=== PATIENT | female | born 1945 | race Caucasian/White ===

== ENCOUNTER → 2018-05-20 12:37 | Outpatient (CLI) | payer OTHER, SELFPAY ==
--- NOTE | 2018-05-20 | DI.MRI.S_ITS ---
PROCEDURE: MR KNEE LT WO CON INDICATIONS: LEFT KNEE OSTEOARTHRITIS TECHNIQUE: Noncontrast sagittal PD fast spin echo and T2 fast spin echo with fat saturation, sagittal 3-D FLASH with fat saturation; coronal T1 spin echo and PD fast spin echo with fat saturation, and axial PD fast spin echo with fat saturation through the knee. COMPARISON: None. FINDINGS: Image quality: Excellent. Menisci: There is peripheral displacement of medial meniscus the medial collateral ligament. Complex tear involving body and posterior horn of medial meniscus is seen extending to both superior and inferior articulating surfaces. There is also complex tear involving anterior horn and body of lateral meniscus extending to both superior and inferior articulating surfaces.. The meniscal root ligaments appear intact. Cruciate ligaments: Degenerative changes throughout anterior cruciate ligament is seen. No full-thickness ACL rupture. Posterior cruciate ligament is intact. Medial structures: The medial collateral ligament appears intact. The posterior oblique ligament, semimembranosus tendon insertions, oblique popliteal ligament, and meniscocapsular junction appear intact. Visualized portions of the pes anserinus tendons appear normal. No abnormal bursal fluid. Lateral structures: The lateral collateral ligament, long and short heads of the biceps femoris tendon appear intact. The popliteus tendon appears normal; the popliteofibular ligament appears intact. The posterosuperior and anteroinferior popliteomeniscal fascicles appear intact. The arcuate and fabellofibular ligaments appear intact, on either side of the lateral inferior geniculate artery. Iliotibial band appears normal. Anterior structures: The quadriceps and patellar tendons appear intact. Patellar alignment is normal. No femoral trochlear dysplasia or ventral trochlear prominence. No edema in the infrapatellar fat pad. Bones and cartilage: Moderate tricompartment osteoarthritis is seen most prominent in medial femoral-tibial compartment with near-complete loss of articulating cartilage is. No fracture or dislocation. Chondromalacia involving medial and lateral facet of patella cartilage is also seen. Joint space: There is moderate amount of joint fluid, no gross loose body. No Ball's cyst. Normal appearing synovial plicae are incidentally noted. IMPRESSION: 1. Complex tear involving body and posterior horn of medial meniscus extending to both superior and inferior articulating surfaces. Complex tear involving anterior horn and body of lateral meniscus extending to both superior and inferior articulating surfaces. 2. Chronic myxoid degenerative changes throughout ACL. No gross full-thickness ACL rupture. PCL is intact. 3. Moderate tricompartmental osteoarthritis most prominent in the medial femoral tibial compartment. Moderate amount of joint effusion. No gross loose body. Dictated by: Ayo Oliver M.D. on 05/20/2018 at 14:57 Approved by: Ayo Oliver M.D. on 05/20/2018 at 15:05
== END ==
PROVIDERS: PCP Nurse Practitioner; Visit Provider Orthopaedic Surgery
DX: M17.12 Unilateral primary osteoarthritis, left knee (principal); S83.232A Complex tear of medial meniscus, current injury, left knee, initial encounter; S83.272A Complex tear of lateral meniscus, current injury, left knee, initial encounter; M25.462 Effusion, left knee
CPT/HCPCS: 73721

== ENCOUNTER 2018-07-09 08:47 | Inpatient (IN) | payer OTHER, SELFPAY ==
[2018-06-24 12:50] VITALS: BMI 35.5
[2018-07-09] VITALS (14 sets, daily range): BP systolic 111–181; BP diastolic 60–93; PULSE 72–92; RESP 9–18; TEMP 36.1–37.1; O2SAT 2–97; BMI 35.3
--- NOTE | 2018-07-09 06:00 | DI.RAD.S_ITS ---
PROCEDURE: XR KNEE LT 1TO2V INDICATIONS: post op films TECHNIQUE: 2 view(s) of the knee acquired. COMPARISON: None. FINDINGS: Bones: Patient is status post knee joint arthroplasty. Hardware components are in expected positions. Visualized bony structures are intact. Soft tissues: Overlying postoperative changes are noted. IMPRESSION: Expected appearance of left knee arthroplasty. Dictated by: Diana Olmos M.D. on 07/09/2018 at 15:20 Approved by: Diana Olmos M.D. on 07/09/2018 at 15:20
[2018-07-09] MEDS: CELECOXIB 200 MG CAPSULE PO (09:26)
[2018-07-09] MEDS: PREGABALIN 75 MG CAPSULE PO (09:26)
[2018-07-09] MEDS: ACETAMINOPHEN 325 MG TABLET 975 MG PO ×2 (09:26→19:34)
[2018-07-09] MEDS: VANCOMYCIN 1,000 MG/200 ML FROZ.PIGGY 200 MG IV (09:38)
[2018-07-09] MEDS: LACTATED RINGERS 1,000 ML 42 ML IV (10:00)
--- NOTE | 2018-07-09 10:43 | PM.PREOP ---
Pre-operative Note Interval Note History & Physical reviewed/Exam performed by Physician: Yes Changes to H&P: No
--- NOTE | 2018-07-09 10:43 | PM.OP.1 ---
Operative Date/Time/Diagnoses Date of procedure: 07/09/18 Time of procedure: 11:44 Pre-op diagnosis: Left knee osteoarthritis Post-op diagnosis: same Procedure & Clinicians Procedure: Left total knee arthroplasty Same procedure as scheduled: Yes Indications: The patient has had progressively worsening left knee pain with radiographic changes consistent with arthritis. Non-operative management has failed and the patient has requested total knee replacement. The risks, benefits and alternatives to surgery were discussed with the patient prior to proceeding. Risks discussed included, but were not limited to, failure to relieve pain, stiffness, infection, nerve damage, deep venous thrombosis, pulmonary embolism, stroke, coma, heart attack, permanent paralysis and , as well as the potential need for eventual revision of the prosthetic. Surgeon: Carmen Contreras Intermediate Card Tender: Susu Srivastava Anesthesia Type: General and Spinal Operative Notes Findings: Severe left knee osteoarthritis, good stability Closure Type: primary Specimen(s): none sent Prosthetic devices, grafts, tissues, transplants, or devices: Contreras and [facility]hew [facility] 2 size 6 femur, size 5 tibia, +9 poly, 35 x 7.5 mm patella Applied: drain(s) Estimated Blood Loss (mL): 250 Blood products transfused: none Tourniquet time (min): 91 Procedure in detail: The patient was seen in the pre-operative area, where the patient identified the left knee as the operative site and this was marked with my initials. The patient received pre-operative antibiotics, and was taken to the operating room and placed on the operative table in the supine position. After satisfactory anesthesia, a time recorder out was performed. The left leg was encircled with a tourniquet about the proximal thigh, and the leg was prepared from the toes to the tourniquet with ChloroPrep in the usual fashion and draped through sterile drapes. The leg was elevated and exsanguinated with Eschmark bandage and the tourniquet inflated to [250] mmHg pressure. The knee was approached through an approximately 18 cm incision centered over the patella and carried into the knee through a medial parapatellar arthrotomy. A portion of the medial and lateral meniscus was resected. Soft tissue was carefully mobilized around the patella the patella was measured with a caliper. Bone was resected from the patella and the patellar height was reconstituted with up an appropriate sized patellar component. A cover was then placed on the patella. A small amount of additional medial and lateral meniscus was resected. The visionare guide fit well to the distal femur. It looked like an appropriate distal femoral cut and the cut was made without difficulty. The rotation was assessed and the appropriate size femoral guide was placed on the distal femur and finishing cuts were made. There was no evidence of notching. The anterior, posterior and chamfer cuts were then made. The posterior osteophytes and soft tissues were then removed. The posterior capsule was injected with part of a mixture of 60 ml 0.25% Marcaine mixed with 20 ml Exparel for post operative pain control. The remainder of this mixture was injected into the capsule and subcutaneous tissues during cement curing. The tibia was prepared and the visionaire guide fit well to the distal tibia. The rotation was assessed. The patient was placed in extension residual medial and lateral meniscus as well as any residual bone was carefully resected. [No] additional tibia was resected. Hemostasis was achieved especially posteriorly. Additional local was injected into the posterior capsule. It was checked with the gap fire protection fabricator. The femoral component was trial was placed and the notch was finished. Trial tibial and femoral components were then placed and the knee placed through a range of motion. Range of motion was [0-130], with good stability throughout the range. The trials were then removed, and the tibia was finished. The bone was prepared with pulsatile lavage, and dried with a sponge. Cement was applied and the final prosthetics placed. Excess cement was removed during and after cement curing. A brief Betadine soak was performed. After confirming there was no extruded cement posteriorly, the final tibial insert was placed. The knee was copiously irrigated and the tourniquet deflated. Hemostasis was obtained with the Bovie. A drain was placed and brought out superolaterally. The capsule was closed with interrupted Vicryl. The subcutaneous layer was closed with barbed sutures, and the skin with a running 3-0 V-Lock suture and Surgical glue. An Aquacel Ag dressing was applied and the patient was taken to recovery having tolerated the procedure well. Complications: none Condition: stable Disposition: Acute Care Plan for aftercare: The patient will be maintained on a standard total knee replacement protocol with weight bearing as tolerated. The patient will receive aspirin and sequential compression devices for DVT prophylaxis. The patient will be discharged home when safe for the home environment.
[2018-07-09] MEDS: CEFAZOLIN 2 GM/100 ML FROZ.PIGGY IV ×2 (11:22→19:33)
--- NOTE | 2018-07-09 11:54 | SUR.OPER ---
Supine on padded OR bed. Pillow under head, arms secured on padded armboards <90 degree abduction. Safety belt across torso. Non-operative leg secured with tape over blanket over lower leg. Operative leg secured in DeMayo/Jluis positioner. Foam padded brace at thigh of operative leg.
[2018-07-09] MEDS: BUPIVACAINE LIPOSOME 266 MG/20 ML VIAL INJ (12:01)
[2018-07-09] MEDS: BUPIVACAINE 0.25% W/ EPI 30 ML VIAL 60 ML INJ (12:01)
[2018-07-09] MEDS: POVIDONE-IODINE 15 ML, SODIUM CHLORIDE 0.9% 250 ML TOP (12:02)
[2018-07-09] MEDS: TRANEXAMIC ACID 1,000 MG VIAL 1000 MG INJ ×2 (12:02→13:28)
--- NOTE | 2018-07-09 15:29 | SUR.PHASEI ---
Post op transfer note: VSS, O2 sat WNL on RA with use of Incentive spirometry. Dressing CDI, spinal effective for pain management. Stable for transfer to IP room 226. Verbal report given to Blake Bangura RN. Family at bedside.
[2018-07-09] MEDS: OXYCODONE IR 5 MG TABLET PO (15:50)
[2018-07-09] MEDS: LACTATED RINGERS 1,000 ML 125 ML IV (15:51)
--- NOTE | 2018-07-09 17:35 | PT.IIE ---
Current Diagnoses Unilateral primary osteoarthritis, left knee (07/09/18) Surgery Performed Operation Date: 07/09/18 10:45 Actual Procedures p Total Knee Arthroplasty(Left) - Carmen Contreras MD Surgical History (Last Updated 06/24/18 @ 13:15 by Mine Benjamin, RN) Hx of cholecystectomy (Acute) Hx of tonsillectomy (Acute) Medical History (Last Updated 07/08/18 @ 15:41 by Giselle Patricio RN) Anxiety (Acute) HLD (hyperlipidemia) (Acute) HTN (hypertension) (Acute) Neuropathy (Acute) Osteoarthritis (Acute) Overactive bladder (Acute) Pre-diabetes (Acute) UTI (urinary tract infection) (Acute) Physical Therapy Inpatient Evaluation/Re-Eval M1 PT/OT-IP Prior Functional Status Start: 07/09/18 17:22 Freq: NEEDED Status: Active Protocol: Document 07/09/18 17:22 EA (Rec: 07/09/18 17:35 EA [id number]) Medical Review Prior Functional Status Medical History Reviewed Yes Diet/Fluid Consistency Regular Communication Normal Mobility and Gait Able to ambulate > 30 mins inside the groceries with pain to left knee with no used of AD Prior Functional Level (Other details) Indep in all ADL's Social History Household Members spouse Living Arrangements House Number of Floors (Floors) 3 or More Floors Number of Stairs To Enter/Railing? 7 steps to get in to the second floor 15 ft bed <-> BR distance Home Environment High Toilet Home Equipment Front Wheel Walker Straight Cane Employment Status Retired M2 PT-IP Current Condition Start: 07/09/18 17:22 Freq: NEEDED Status: Active Protocol: Document 07/09/18 17:22 EA (Rec: 07/09/18 17:35 EA [id number]) Physical Therapy Current Condition Current Condition Evaluation Date 07/09/18 Treatment Diagnosis s/p Left TKA 07/09/18 Weight Bearing Status Weight Bearing Status Weight Bear as Tolerated M3 PT-IP Subjective Start: 07/09/18 17:22 Freq: NEEDED Status: Active Protocol: Document 07/09/18 17:22 EA (Rec: 07/09/18 17:35 EA [id number]) Subjective Physical Therapy Visit Type Type Initial Evaluation Visit Start Time 16:50 Visit Stop Time 17:30 Total Visit Minutes 40 Number of PRODUCTION HELPER Visits 1 Physical Therapy Visit Comments Patient Comments I would like to go home now Patient Goals Patient would like to be indep in all functional transfers and mobility prior to d/c. Therapy Pain Assessment Pain When Pain Assessed At Rest Pain Present Pain Present Pain Reported Location Left Anterior Knee Intensity 1 Description Acute M4 PT-IP Mobility and Gait Start: 07/09/18 17:22 Freq: NEEDED Status: Active Protocol: Document 07/09/18 17:22 ONEL (Rec: 07/09/18 17:35 EA [id number]) PT-Bed Mobility Assessment Rolling Level of Assist Standby Assistance Supine to Sit Supine to Sit Standby Assistance Sit to Supine Sit to Supine Standby Assistance Scooting Scooting to Edge of Bed Standby Assistance PT-Transfer Assessment Sit to and From Stand Sit to and from Stand Standby Assistance Equipment Transfer Assistive Device Gait Belt Front Wheeled Walker Orthotic/Prosthetic Devices or Brace: No Transfers Transfer Destination Bed Chair Bedside Commode Transfer Technique stepping transfers Transfer Ability Level of Assist Contact Guard Assistance Gait Assessment Gait Gait Assistance Required: Standby Assistance Distance (Feet) 10 Assistive Devices Assistive Device Gait Belt Front Wheeled Walker Orthotic/Prosthetic Devices or Brace: No Gait Deviations General Gait Pattern Antalgic Step-to Gait Factors Limiting Gait Function Factors Limiting Gait Function Decreased Activity Tolerance Decreased Strength Pain Comments Gait Comments Requires cues during turning and gait sequencingusing a walker PT-Balance Assessment Sitting Balance and Reactions Static Sitting Balance Ability Normal Dynamic Sitting Balance Ability Normal Standing Balance and Reactions Static Standing Balance Ability Good Dynamic Standing Balance Ability Fair M5 PT-IP Objective Assessments Start: 07/09/18 17:22 Freq: NEEDED Status: Active Protocol: Document 07/09/18 17:22 ONEL (Rec: 07/09/18 17:35 EA [id number]) Orientation Orientation/Cognition Level of Alertness Alert Orientation Name Age Language Function Ability No Deficits Noted Safety Awareness Understands Safety Issues Memory Description No Deficits Noted Gross Range of Motion Upper Extremity ROM Assessment Within Functional Limits Lower Extremity ROM Assessment Left Impaired Impairments Left nof fullly assessed but at least with 0-90 deg flexion /ext Strength Upper Extremity Strength Assessment Within Functional Limits Lower Extremity Strength Assessment Left Impaired Knee Not properly assessed but with at least 3/5 Coordination Assessment Assessment Finger to Nose Test Normal Performance Pronation/Supination Test Normal Performance Sensation Assessment Sensation Gross Sensation WNL Light Touch Intact Proprioception (Position) Intact M6 PT-IP Treatment Start: 07/09/18 17:22 Freq: NEEDED Status: Active Protocol: Document 07/09/18 17:22 EA (Rec: 07/09/18 17:35 EA [id number]) Physical Therapy Treatment Exercises Exercises Ankle Pumps Gluteal Sets Quad Sets Heel Slides Straight Leg Raises Short Arc Quads Passive Knee Extension Hang Seated Knee Flexion/Extension Education Education Provided Precautions Weight Bearing Status Post-Op Packet Safety M7 PT-IP Assessment and Plan Start: 07/09/18 17:22 Freq: NEEDED Status: Active Protocol: Document 07/09/18 17:22 EA (Rec: 07/09/18 17:35 EA [id number]) PT Summary Assessment and Plan Potential Rehabilitation Potential Excellent Status of Condition at Evaluation Stable Summary Impairments Pain ROM Strength Bed Mobility Transfers Gait Activity Tolerance Progress Towards Goals Progressing Toward Goals Assessment Summary Pt demonstrates decreased tolerance to standing mobility due to pain and weakness to left LE. She requires assistance at this time for safety with the use of AD during transfers. Patient would benefit with skilled PT to reach functional independence prior to discharge. Patient exhibits high potential for recovery. Goals Bed Mobility Goal Independent Transfer Goal Independent Front Wheeled Walker Gait Goal Independent Gait Distance 50 ft Days to Meet Goals 2 Frequency of Treatment Frequency Of Treatment Twice a Day Treatment Plan Physical Therapy Treatment Plan Bed Mobility Training Transfer Training Gait Training Therapeutic Exercise Balance Retraining Post Op Education Discharge Planning Hot or Cold Pack Other Recommendations and Next Treatment Stair navigation with rails Focus using to the left arm. Distance ambulation with FWW Recommendations To Nursing Amount of Assist Needed Standby Assistance 1 Person Assist Discharge Recommendations PT Discharge Recommendations Home with Assistance
[2018-07-09] MEDS: POTASSIUM CHLORIDE 10 MEQ TAB 20 MEQ PO (19:33)
[2018-07-09] MEDS: SERTRALINE 25 MG TABLET PO (19:35)
[2018-07-09] MEDS: DOCUSATE 100 MG CAPSULE PO (19:35)
[2018-07-09] MEDS: SIMVASTATIN 40 MG TABLET PO (19:36)
--- NOTE | 2018-07-09 19:44 | PC.NURSE ---
Addendum entered by Shama Bangura R.N. 07/09/18 22:22: Relatively uneventful evening. Assisted to BR w/o incidence. Satisfactory post op course. Call light w/in reach, bed alarm on for pt safety. Continue w/plan of care. Original Note: Pt awake, visiting w/ family. Med at 1540 for discomfort w/good relief. Dsg to left knee Angel Luis/auacell CDI. Assisted to BR w/o incidence. HV intact/patent. IVF as per orders infusing via pump into the left hand. Call light w/in reach. bed alarm on for pt safety.
[2018-07-09] MEDS: ASPIRIN EC 81 MG TABLET PO (22:41)
[2018-07-10] VITALS: BP 148/74; PULSE 76; RESP 16; TEMP 36.7; O2SAT 92
[2018-07-10] MEDS: LACTATED RINGERS 1,000 ML 125 ML IV (00:37)
--- NOTE | 2018-07-10 00:52 | PC.NURSE ---
2300- Pt POD#0 L total knee w/ aquacell & jackie wrap in place CDI. CMS intact distally, pt wants SED's off at this time, will revisit turning them on. LR running as ordered; tolerating regular diet w/ no nausea. 1PA to bathroom, worked with PT today, PO oxycodone for pain control. BA on for safety reasons.
[2018-07-10] MEDS: CEFAZOLIN 2 GM/100 ML FROZ.PIGGY IV (03:32)
[2018-07-10 05:00] VITALS: BP 155/81; PULSE 77; RESP 16; TEMP 36.7; O2SAT 93
[2018-07-10 05:30] LABS: Hematocrit 39.1 % (36-46); Hemoglobin 13.6 g/dL (12.0-16.0)
[2018-07-10] MEDS: OXYCODONE IR 5 MG TABLET PO (05:57)
[2018-07-10 08:00] VITALS: BP 151/73; PULSE 73; RESP 16; TEMP 36.6; O2SAT 93
[2018-07-10 09:47] VITALS: BP 149/75; PULSE 79
[2018-07-10] MEDS: hydroCHLOROthiazide 25 MG TABLET 50 MG PO (09:47)
[2018-07-10] MEDS: METOPROLOL ER 50 MG TABLET 100 MG PO (09:47)
[2018-07-10] MEDS: ACETAMINOPHEN 325 MG TABLET 975 MG PO (09:47)
[2018-07-10] MEDS: ASPIRIN EC 81 MG TABLET PO (09:47)
[2018-07-10] MEDS: DOCUSATE 100 MG CAPSULE PO (09:47)
[2018-07-10 10:02] VITALS: PULSE 76; RESP 12; O2SAT 95
--- NOTE | 2018-07-10 10:09 | PM.DS.1 ---
History of Present Illness Date Patient Seen: 07/10/18 Time Patient Seen: 10:09 Chief complaint: [id number] ID# [id number] Narrative: Hospital day 2, postop day 1 following left total knee arthroplasty by Dr. Contreras. Patient remained stable postoperatively. She did work with Physical therapy this morning ambulating in hallway doing stairs and did well. She has a [facility] patient. She does have postoperative pain medication at home for oxycodone. She is scheduled to go to [facility] PT in [place]. Discharge Providers Date of admission: 07/09/18 08:47 Discharge Date: 07/10/18 Primary care physician: Ana Lamas MD Consults: 07/09/18 06:00 Consult to Anesthesiology Routine Comment: Consulting Provider: Anesthesiologist Reason for consultation: Regional block for post operative pain control 07/09/18 15:29 Consult to Discharge Planning Routine Comment: Consult to Physical Therapy Evaluate & Treat Comment: Physician Instructions: postop TKA protocol Consult to Respiratory Therapy Evaluate & Treat Comment: Physician Instructions: Evaluate and treat Discharge provider: Chencho Rodriguez PA-C Summary Discharge Diagnosis: Status post left total knee arthroplasty Hospital Course: Patient brought to hospital on 07/09/2018 for above-noted surgery. She remained stable postoperatively. Progressed well with physical therapy. Ready for discharge home on postop day 1. Status at Discharge Cognitive/behavioral status at discharge: oriented Functional status at discharge: uses cane/walker Overall status at discharge: patient is progressing back to baseline Time Spent with Patient Less than 30 minutes Exam Vital Signs (past 8 hours): - 07/10/18 05:00 07/10/18 08:00 07/10/18 09:47 Temperature 98.0 F 97.8 F Pulse Rate 77 73 79 Respiratory Rate 16 16 Blood Pressure 155/81 H 151/73 H 149/75 H Pulse Oximetry 93 93 07/10/18 10:02 Temperature Pulse Rate 76 Respiratory Rate 12 Blood Pressure Pulse Oximetry 95 Oxygen Delivery Method Room Air Oxygen Flow Rate 0 Narrative Exam Narrative: Alert, oriented no acute distress sitting in chair. Legs. Angel Luis wrap an Aquacel dressing in place without drainage or inflammation. Hemovac with minimal drainage. No calf pain or swelling. Pulses symmetrical. Objective Labs Result Diagrams: 07/10/18 05:12 Labs: Laboratory Results - last 24 hr 07/10/18 05:12 Hgb 13.6 Hct 39.1 Discharge Plan Discharge Plan Patient Disposition: Home Discharge comment: Discharge home today after cleared by PT. She has postoperative oxycodone at home. She is scheduled to go to [facility] and [facility]. She is encouraged to do range of motion of left knee as much as possible. Discharge Med Rec/Prescriptions Prescriptions: New acetaminophen 325 mg Tablet 975 mg PO TID Qty: 30 RF: 0 aspirin 81 mg Tablet,Delayed Release (Dr/Ec) 81 mg PO BID Qty: 60 RF: 0 Continued hydrochlorothiazide 50 mg Tablet 50 mg PO DAILY RF: 0 metoprolol succinate 100 mg Tablet Extended Release 24 Hr 100 mg PO DAILY RF: 0 potassium chloride 10 mEq Tablet Extended Release 20 meq PO QPM RF: 0 aspirin 81 mg Tablet,Delayed Release (Dr/Ec) 81 mg PO DAILY RF: 0 simvastatin 40 mg Tablet 40 mg PO BEDTIME RF: 0 ibuprofen 200 mg Tablet 200 mg PO BID-TID PRN (Reason: Pain) RF: 0 sertraline 25 mg Tablet 25 mg PO BEDTIME RF: 0 Follow up/Referrals: Ana Lamas MD [Primary Care Provider] - Provider Discharge Instructions Diet: Diet as Tolerated Activity: Ambulate as tolerated. Use walker as needed. Cold/Heat Therapy: Cold pack to left knee as needed. Skin/Wound/Dressing Care Report to your healthcare provider any signs of infection, such as:: chills, fever, night sweats, increased pain, unusual drainage and unusual redness Dressing: Keep Aquacel dressing in place until postop visit. Visit Report/Discharge Packet Instructions: DI for Knee Replacement Discharge Data Primary Care Provider: Ana Lamas Attending Provider: Carmen Contreras Admit Date/Time: 07/09/18 08:47 Quality VTE Deep Vein Thrombosis/Pulmonary Embolism Present on Admission: No
[2018-07-10 10:26] VITALS: O2SAT 96
--- NOTE | 2018-07-10 10:45 | PT.IPTN ---
Current Diagnoses Unilateral primary osteoarthritis, left knee (07/09/18) Surgery Performed Operation Date: 07/09/18 10:45 Actual Procedures p Total Knee Arthroplasty(Left) - Carmen Contreras MD Physical Therapy Treatment Note M2 PT-IP Current Condition Start: 07/09/18 17:22 Freq: NEEDED Status: Active Protocol: Document 07/09/18 17:22 EA (Rec: 07/09/18 17:35 EA [id number]) Physical Therapy Current Condition Current Condition Evaluation Date 07/09/18 Treatment Diagnosis s/p Left TKA 07/09/18 Weight Bearing Status Weight Bearing Status Weight Bear as Tolerated M3 PT-IP Subjective Start: 07/09/18 17:22 Freq: NEEDED Status: Active Protocol: Document 07/10/18 10:35 SA (Rec: 07/10/18 10:45 SA [email or web address]) Subjective Physical Therapy Visit Type Type Treatment Note Visit Start Time 09:02 Visit Stop Time 09:40 Total Visit Minutes 38 Number of SMALL BATTERY PLATE ASSEMBLER Visits 1 Physical Therapy Visit Comments Patient Comments Pt reports having recieved pain medication about 2.5 hrs prior to PT, rates painas 2-3/ 10. Patient Goals Patient would like to be indep in all functional transfers and mobility prior to d/c. Therapy Pain Assessment Pain When Pain Assessed During Mobility Pain Present Pain Present Pain Reported Location Left Anterior Knee Intensity 3 Scale Used Numeric (1 - 10) Description Acute Pain Management Techniques Apply Cold Timing of Activity with Medications M4 PT-IP Mobility and Gait Start: 07/09/18 17:22 Freq: NEEDED Status: Active Protocol: Document 07/10/18 10:35 SA (Rec: 07/10/18 10:45 SA [id number]) PT-Bed Mobility Assessment Rolling Type of Rolling Roll to Right Level of Assist Independent Supine to Sit Supine to Sit Standby Assistance Sit to Supine Sit to Supine Standby Assistance Scooting Scooting to Edge of Bed Standby Assistance Scooting Up and Down in Bed Standby Assistance PT-Transfer Assessment Sit to and From Stand Sit to and from Stand Standby Assistance Equipment Transfer Assistive Device Gait Belt Front Wheeled Walker Orthotic/Prosthetic Devices or Brace: No Transfers Transfer Destination Bed Chair Transfer Technique Stand Step Pivot Transfer Ability Level of Assist Standby Assistance Contact Guard Assistance 1 Person Assistance Comments Mobility Comments Pt SBA with bed mobility and SBA-CGA with transfers, needs cues for using FWW safely, no LOB or knee buckling. Gait Assessment Gait Gait Assistance Required: Standby Assistance Distance (Feet) 200 Able to Maintain Weight Bearing Status Yes During Gait Assistive Devices Assistive Device Gait Belt Front Wheeled Walker Orthotic/Prosthetic Devices or Brace: No Gait Deviations General Gait Pattern Antalgic Decreased Stride Length Factors Limiting Gait Function Factors Limiting Gait Function Decreased Activity Tolerance Decreased Strength Limited Range of Motion Comments Gait Comments Pt initially with step to gait pattern but able to correct to step through with increased WBing in LLE, maintains normalized gait pattern with long walk from stairs and denies increase in pain. Stair Climbing Assessment Evaluation Level of Assist On Stairs Standby Assistance Contact Guard Assistance 1 Person Assistance Devices Stair Climbing Assistive Devices Left Railing Technique/Endurance Stair Climbing Direction Ascend and Descend Stair Climbing Technique Step to Step Number of Steps Climbed 3 Query Text: Stair Climbing Set # Repetitions (reps) 2 Comments Stair Climbing Comments SBA-CGA on stairs using single L ascending rail, step to gait pattern with Min cues for technique. Pt practiced stairs prior to surgery and present for caregiver training. M5 PT-IP Objective Assessments Start: 07/09/18 17:22 Freq: NEEDED Status: Active Protocol: Document 07/09/18 17:22 EA (Rec: 07/09/18 17:35 EA [id number]) Orientation Orientation/Cognition Level of Alertness Alert Orientation Name Age Language Function Ability No Deficits Noted Safety Awareness Understands Safety Issues Memory Description No Deficits Noted Gross Range of Motion Upper Extremity ROM Assessment Within Functional Limits Lower Extremity ROM Assessment Left Impaired Impairments Left nof fullly assessed but at least with 0-90 deg flexion /ext Strength Upper Extremity Strength Assessment Within Functional Limits Lower Extremity Strength Assessment Left Impaired Knee Not properly assessed but with at least 3/5 Coordination Assessment Assessment Finger to Nose Test Normal Performance Pronation/Supination Test Normal Performance Sensation Assessment Sensation Gross Sensation WNL Light Touch Intact Proprioception (Position) Intact M6 PT-IP Treatment Start: 07/09/18 17:22 Freq: NEEDED Status: Active Protocol: Document 07/10/18 10:35 SA (Rec: 07/10/18 10:45 SA [email or web address]) Physical Therapy Treatment Exercises Exercises Ankle Pumps Gluteal Sets Quad Sets Heel Slides Straight Leg Raises Short Arc Quads Passive Knee Extension Hang Seated Knee Flexion/Extension Education Education Provided Precautions Weight Bearing Status Post-Op Packet Safety Equipment Issued Equipment Type and Company Education for walking frequently through out the day and not using pillow under L knee. M7 PT-IP Assessment and Plan Start: 07/09/18 17:22 Freq: NEEDED Status: Active Protocol: Document 07/10/18 10:35 SA (Rec: 07/10/18 10:45 SA [email or web address]) PT Summary Assessment and Plan Potential Rehabilitation Potential Excellent Status of Condition at Evaluation Stable Summary Assessment Summary Pt progressing well with low pain levels, safe transfers and gait with FWW and good ability to ascend/descend stairs with for SBA. Anticipate d/c home this afternoon. Frequency of Treatment Frequency Of Treatment Twice a Day Treatment Plan Physical Therapy Treatment Plan Bed Mobility Training Transfer Training Gait Training Therapeutic Exercise Balance Retraining Post Op Education Discharge Planning Hot or Cold Pack Other Recommendations and Next Treatment Stair navigation with rails Focus using to the left arm. Distance ambulation with FWW
--- NOTE | 2018-07-10 12:41 | CM.DANOTE ---
Discharge Planning/Care Management DCP: assessment: case received and d/c to home order noted. Case discussed in Team Rounds and therapy team indicated pt had done well. Met now with pt and her . Introduced self and role. Pt is a 73 year old who admitted yesterday to for a planned TKA. Surgeon: Dr. Gillian Contreras Payer: [facility] Medicare Advantage. INPT admission status: confirmed by UR RN Rajesh. Pt has been cleared by PT for the home setting and she says she is very comfortable with the d/c home today. Her is here to take her and she has OUTPT PT already set up in [facility]. P: home today as per above. CM Discharge Assessment Start: 07/10/18 12:40 Freq: Status: Active Protocol: Document 07/10/18 12:40 ITV (Rec: 07/10/18 12:41 ITV [id number]) Discharge Planning Assessment Advance Directives? Yes Advance Directives on File No: copied at admitting 07/09/18 History Provided By Patient Family Member Medical Record Prior Living Arrangements House Household Members spouse Independent with ADL's Yes Is patient alert and oriented? Yes Comment no need, pt leaving shortly Review Status In Process Next Review Type Continued Stay Review Pre-Anesthesia Assessment Start: 06/24/18 12:50 Freq: Status: Active Protocol: Document 06/24/18 12:50 CAB (Rec: 06/24/18 13:34 CAB [id number]) Pre-Anesthesia Assessment Patient Information Reviewed Via Phone Assessment Assessment Completed With Patient Diagnostic Results BMP/CMP CBC EKG Urinalysis Other Comment A1c. Outside labs/EKG scanned to record Primary Care Provider [facility] Clearance Received Yes Seen Specialist in Last 12 Months Yes Specialist Seen Orthopedist Comment PCP pre-op/clearance 06/17/18 scanned to record Primary Language Faroese Magnetic Observer Required No Height 167.64 cm Weight 99.79 kg Body Mass Index (BMI) 35.5 Hearing Ability Normal Visual Assist Glasses Dentition Type Teeth, Natural Present Barriers to Learning None Other Aids No Hx Anesthesia Reactions No Hx Family Anesthesia Reaction No Hx Malignant Hyperthermia No Hx Blood Transfusions No Anesthesia Review Requested No Corporate Physical Security Supervisor No alcohol intake current alcohol intake frequency holidays/special occasions only Smoking Status Never smoker Substance Use Type does not use Pain Present Pain Reported Musculoskeletal Symptoms Difficulty Walking Joint Pain Muscle Weakness Numbness History of Falling (Recent or History of No ) Patient is completely paralyzed or No completely immobile Mental Status Oriented to own ability Is patient on oxygen? No Does patient have ASHTON/SOB No Hx Sleep Apnea No Currently Taking a Beta Ling Yes: Metoprolol Can You Climb a Flight of Stairs Without Yes SOB Hx Chest Pain No Hx SOB No Hx Syncope or Dizziness No Anti-Coagulant Therapy No Has a Garden Labourer No Cardiac Testing No Hx Pacemaker/ICD No Pacemaker Rep Required? No Cardiac Clearance Received Not Applicable Diet Type At Home Regular dysphagia No Urinary Catheter Present No Hx Urinary Self Catheterization No Comment Hx UTI approx 1 month ago Diabetes No: Pre-diabetes HgbA1C 6.0 Date 06/14/18 Patient No Lactating No Hx Drug Resistant Organism No Presence of External or Internal Medical No Devices Have you traveled outside the [facility] in the last 30 days? Marital Status Lives With spouse Prior Living Arrangements House Number of Floors (Floors) 3 or More Floors Support System Child/Children Spouse Does the Patient Have Assistance After Yes Surgery Patient Discharge Plan Description Return Home Comment Pt advised 1 day length of stay per surgeon's office Feels Safe in Current Environment Yes Been Physically Hurt or Threatened By a No Person in Current Environment Do you have thoughts of harming yourself None or others? Are you currently considering suicide? No Do you have a plan to hurt yourself or No Plan others? Do You Have Any Spiritual Beliefs That No May Affect Your HC Choices? Do You Have Any Cultural Practices That No May Affect Your HC Choices? Spiritual Referral None Comment Rastafari Who Can We Speak to About Patient's Care Family, friends Identifying Code for Release of Patient Declines to issue Information Health Care Proxy/Next of Kin Kevin () Health Care Proxy Emergency Contact Name Kevin () Emergency Contact Advance Directives? Yes Advance Directives on File No Requested Patient Bring Advanced Yes Directives DOS Power of Button Station Worker Yes Power of Button Station Worker Name Kevin () Power of Button Station Worker PAC Instructions Do not shave/clip surgical site Durable medical equipment Medications to take/avoid Nasal antibiotic No ETOH/petroleum product on skin DOS NPO Pre-surgical wash Sturdy shoes/comfortable clothes Do not bring valuables and remove jewelry Stop Bang Assessment Do you snore loudly (louder than talking No or loud enough to be heard through closed doors) Do you often feel tired, fatigued or No sleepy during the daytime Has anyone ever observed you stop No breathing while sleeping? Do you have, or are you being treated Yes for, high blood pressure Is your BMI more than 35 kg/m2 Yes Age over 50 Yes Estimated neck circumference greater No than 40cm or 16in Gender male No Result Negative
--- NOTE | 2018-07-10 13:28 | PC.NURSE ---
Discharge instructions and follow up given to pt and spouse. All questions answered. Steady gait observed with FWW, pt escorted to exit by LIMB DRIVER in wheelchair.
== END 2018-07-10 13:27 | disposition home or self-care (01) | DRG 470 ==
PROVIDERS: Admitting Provider Orthopaedic Surgery; PCP Student in an Organized Health Care Education/Training Program; Visit Provider Orthopaedic Surgery
PROC: 0SRD0JZ Replacement of Left Knee Joint with Synthetic Substitute, Open Approach (ICD-10-PCS; CPT 27447; principal; 2018-07-09 10:45)
DX: M17.12 Unilateral primary osteoarthritis, left knee (principal); I10 Essential (primary) hypertension
CPT/HCPCS: 36415; 73560; 85014; 85018; 94760; 97110; 97116; 97161; 97530; 97535; C1776; C9290; J0690; J1100; J2250; J2405; J2704; J3370